=== PATIENT | female | born 1930 | race Caucasian/White ===

== ENCOUNTER 2018-06-29 09:10 | Inpatient (IN) | payer MEDICARE ==
[~2018-06-29] VITALS: Ht 165.1 cm; Wt 85.4 kg
--- OUTSIDE RECORDS SUMMARY | 2018-06-29 09:24 | XMS REPORT ---
Author Author [facility] Address Unknown Phone Unavailable Care Team Providers Care Conventional Mortgage Underwriter Name Role Phone Unavailable Unavailable Payers Payer Name Policy Type Policy Number Effective Date Expiration Date Problems This patient has no known problems. Allergies, Adverse Reactions, Alerts Allergy Name Allergy Type Status Severity Reaction(s) Onset Date Inactive Date Treating Clinician Comments sulfamethoxazole DA Active U 2017-08-16 00:00:00 trimethoprim DA Active U 2017-08-16 00:00:00 Medications This patient has no known medications.
--- NOTE | 2018-06-29 10:13 | Diagnostic Imaging Report ---
Examination: CT head without contrast Clinical Indication: Severe pain behind the eyes. Headaches.. Technique: Transaxial noncontrast images from the skull base through the vertex were obtained. Sagittal and coronal reformatted images were done. Dose modulation, iterative reconstruction, and/or weight based adjustment of the mA/kV was utilized to reduce the radiation dose to as low as reasonably achievable. Comparison: None. Findings: Scalp: No abnormalities. Bones: Intact. No fractures. No blastic or lytic lesions. Brain sulci: Mild volume loss for patient's age. Ventricles: Ex vacuo dilatation. No hydrocephalus. . Extra-axial space: No abnormalities. Parenchyma: There are subtle confluent areas of low-attenuation within subcortical and periventricular white matter, nonspecific, but could represent microvascular ischemic disease. No masses, hemorrhage, or acute or chronic cortical based vascular insults. Suprasellar region: No abnormalities. Craniocervical junction: The foramen magnum is patent. No Chiari one malformation. Incidental findings: Atherosclerotic calcification of the cavernous and supraclinoid internal carotid arteries. Impression: 1. No acute intracranial finding. 2. Mild chronic microvascular ischemic change and mild volume loss. Signed by: Dr. Arely Oden M.D. on 06/29/2018 10:09 AM
[2018-06-29 10:49] LABS: BASOPHILS # (AUTO) 0.1 (0.0-0.1); BASOPHILS % 0.7 % (0.0-1.0); EOSINOPHILS # (AUTO) 0.1 (0.0-0.4); EOSINOPHILS % 1.2 % (0.0-6.0); HEMATOCRIT 38.6 % (34.2-44.1); HEMOGLOBIN 12.3 g/dL (12.0-16.0); LYMPHOCYTES # (AUTO) 1.5 (1.0-3.2); MEAN CORPUSCULAR HEMOGLOBIN 32.5 pg (28-32); MEAN CORPUSCULAR HGB CONC 31.9 g/dL (31-35); MEAN CORPUSCULAR VOLUME 102.1 fL (81-99); MONOCYTES # (AUTO) 0.7 (0.2-0.8); MONOCYTES % 10.4 % (4.4-11.3); NEUTROPHILS # (AUTO) 4.5 (2.1-6.9); NEUTROPHILS % 65.6 % (38.7-80.0); PLATELET COUNT 194 x10e3/uL (140-360); RED BLOOD COUNT 3.78 x10e6/uL (3.6-5.1); RED CELL DISTRIBUTION WIDTH 14.2 % (11.7-14.4)
[2018-06-29 11:00] LABS: PARTIAL THROMBOPLASTIN TIME 23.4 seconds (23.8-35.5); PROTHROMBIN TIME 14.1 seconds (11.9-14.5)
[2018-06-29 11:08] LABS: ALANINE AMINOTRANSFERASE 19 IU/L (0-55); ALBUMIN 3.5 g/dL (3.5-5.0); ALBUMIN/GLOBULIN RATIO 1.1 (0.8-2.0); ALKALINE PHOSPHATASE 79 IU/L (40-150); BLOOD UREA NITROGEN 17 mg/dL (7-26); BUN/CREATININE RATIO 13 (6-25); CALCIUM 9.6 mg/dL (8.4-10.2); CARBON DIOXIDE 25 mmol/L (22-29); CHLORIDE 108 mmol/L (98-107); CREATINE KINASE 76 IU/L (29-168); CREATININE, SERUM 1.31 mg/dL (0.57-1.11); EST GLOMERULAR FILTRATION RATE 39 ML/MIN (60-); GLUCOSE 107 mg/dL (74-118); SODIUM 142 mmol/L (136-145)
[2018-06-29] MEDS ORDERED: ASPIRIN 325 MG TAB PO ONE (11:45)
--- NOTE | 2018-06-29 15:16 | Diagnostic Imaging Report ---
MRI BRAIN WO HISTORY: Loss of vision, possible stroke COMPARISON: Head CT 06/29/2018 TECHNIQUE: Sagittal T2, axial T2, axial T1, axial T2/FLAIR, axial gradient echo (or susceptibility weighted), coronal T2/FLAIR, and axial diffusion weighted MR images of the brain were obtained without contrast. Motion artifacts obscure some details. DISCUSSION: Scalp/bone marrow: Unremarkable. Brain sulci: Mildly prominent. Ventricles: Compensatory dilatation. Extra-axial spaces: No masses or fluid collections. Parenchyma: Scattered T2/FLAIR hyperintense foci throughout the supratentorial white matter are likely chronic microvascular ischemic changes. Otherwise, no mass, hemorrhage, or acute vascular insults. Vessels: Normal flow voids in major arteries and veins. Sellar/Suprasellar region: No abnormalities. Craniocervical junction: No abnormalities. Incidental findings: Both ocular lenses are thinned. IMPRESSION: 1. No acute intracranial abnormalities. 2. Mild supratentorial chronic microvascular ischemic change. Mild generalized cerebral volume loss. Signed by: Dr. Oskar Kwok M.D. on 06/29/2018 3:12 PM
[2018-06-29] MEDS ORDERED: HYDRALAZINE HCL 20 MG/ML VIAL IV PRN (15:30)
[2018-06-29 17:28] LABS: CHOL/HDL RATIO 1.8 (3.0-3.6)
[2018-06-29] MEDS: FAMOTIDINE 20 MG TAB PO SCH (17:40)
[2018-06-29] MEDS: HEPARIN 25,000 UNIT/D5W 250ML 250 ML IV SCH (18:04)
--- NOTE | 2018-06-29 20:17 | Consultation ---
DATE OF CONSULTATION: June 29, 2018 NEUROLOGY CONSULTATION NOTE HISTORY OF PRESENT ILLNESS: Ms. 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 On the afternoon of June 28, 2018, patient experienced severe pain surrounding her left eye. She describes the pain as stabbing. On the afternoon of June 28, 2018, there are no other symptoms associated with this pain. Ms. Kowalski reports the pain resolved after approximately 15 minutes. At 0630 on June 29, 2018, patient once again experienced pain similar to that described above. In addition to the pain, Ms. Kowalski experienced the sudden onset of right homonymous hemianopsia. Ms. Kowalski does not report dysarthria, aphasia, facial droop, hemiparesis, hemihypesthesia, gait impairment, poor balance, dizziness, or confusion associated with the above symptoms. Ms. Kowalski reports the visual disturbance lasted for approximately 25 minutes, then spontaneously resolved. Approximately 1 hour after the symptoms began, Ms. Kowalski called her daughter to inform her of her symptoms. The patient's daughter advised her to go to the Emergency Center at [facility] for further evaluation. Upon arrival in the Emergency Center, the patient was afebrile with a blood pressure 169/84 mmHg and pulse is 69 beats per minute. The patient's neurological examination was documented as being nonfocal. A CT of the brain without contrast was performed and did not show evidence of recent large territorial ischemia or hemorrhage. Ms. Kowalski will be admitted to [facility] for further evaluation and treatment of the above described symptoms. 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 She is treated with Coumadin to prevent recurrence of deep venous thromboses as well as to prevent other blood clots. However, Ms. Kowalski has not taken her Coumadin for the past 3 days pending a pain procedure which is scheduled to occur on Sunday, July 01, 2018. Ms. Kowalski reports being diagnosed with myasthenia gravis in 2012. The patient took oral medications for her myasthenia gravis until approximately 2 years ago. At that time, the patient's neurologist discontinued treatment with these medications. REVIEW OF SYSTEMS: Blurred vision, loss of vision (right homonymous hemianopsia), eye pain. Otherwise, the 12 point review of systems is negative. 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 PAST SURGICAL HISTORY: Left foot surgery, left mastectomy, hysterectomy, right thyroid lobectomy, multiple other surgeries/procedures which the patient does not recall at present. PAST HOSPITALIZATIONS: Surgeries/procedures as listed, diverticulitis 1 year ago, pneumonia 2 years ago, childbirth times 2, multiple other hospitalizations which the patient does not recall at present. FAMILY MEDICAL HISTORY: The patient's paternal and maternal grandparents are . Their medical histories are unknown. The patient's father is from coronary artery disease with myocardial infarction. Patient's mother is from stomach cancer. Ms. Kowalski had 3 siblings, 1 brother and 2 sisters. The brother is from a broken hip. sisters are alive. One sister has heart disease. Second sister has arthritis. Ms. Kowalski has 2 children, a son and daughter, both of whom are alive. The son is healthy. The daughter has heart disease, arthritis, and peripheral neuropathy. SOCIAL HISTORY: Ms. Kowalski is . She is retired. She does not report current or prior tobacco or recreational drug use. The patient does report alcohol use. She drinks a glass of wine 2 to 3 times per week. HOME MEDICATIONS: Warfarin 7 mg or 6 mg, pantoprazole 40 mg by mouth daily, levothyroxine 75 mcg by mouth daily, atorvastatin 40 mg by mouth at bedtime daily, lorazepam 0.5 mg by mouth as needed for anxiety, lisinopril-hydrochlorothiazide 20-25 mg by mouth daily. ALLERGIES: NO KNOWN DRUG ALLERGIES. NO KNOWN FOOD ALLERGIES. NO KNOWN ALLERGIES TO LATEX. NO KNOWN ALLERGIES TO IODINE OR OTHER CONTRAST MATERIALS. PHYSICAL EXAMINATION: VITAL SIGNS: Height 65 inches, weight 180 pounds. BMI 30.0 kg per meter squared. Blood pressure 171/91 mmHg. Pulse 63 beats per minute. Respiratory rate 18 breaths per minute. Oxygen saturation 96% on room air. GENERAL: The patient is awake and alert. Does not appear distressed. Overweight. HEENT: Normocephalic and atraumatic. Pupils are surgical. Moist mucous membranes. NECK: Supple. No appreciable thyromegaly. No appreciable carotid bruits. CARDIOVASCULAR: S1 and S2. Regular rate and rhythm. No murmurs, rubs or gallops. RESPIRATORY: Clear to auscultation bilaterally. No wheezes, rhonchi or rales. EXTREMITIES: The skin is warm and dry. No clubbing, cyanosis or edema. The posterior tibial and dorsalis pedis pulses are 1+ and symmetric. SKIN: No rashes or lesions. NEUROLOGIC: Memory/attention: The patient is awake and alert. Oriented to person, place, time, and situation. CRANIAL NERVES: Cranial nerve I: Not tested. Cranial nerves II, III, IV, : Pupils are surgical. Extraocular movements intact. No nystagmus. Cranial nerve V: Sensation to light touch and pinprick is intact in the bilateral V1 through V3 distributions. Strength of the temporalis and masseter muscles is within normal limits. Cranial nerve VII: The face is symmetric, as are all facial movements. Strength is within normal limits. Cranial nerve VIII: Hearing is diminished to finger rub bilaterally. Cranial nerve IX and X: The soft palate elevates equally and symmetrically. Cranial nerve XI: Normal strength of the bilateral sternocleidomastoid and trapezius muscles. Cranial nerve XII: The tongue protrudes midline and moves symmetrically from side to side. STRENGTH: Bulk is normal, and strength is 5/5 in the bilateral deltoids, biceps, triceps, wrist flexors and extensors, finger flexors and extensors, intrinsic hand muscles, hip flexors, knee flexors and extensors, ankle dorsiflexion and plantar flexion, and intrinsic foot muscles. Tone is normal. DTRs: Deep tendon reflexes are 1+ and symmetric at the triceps, biceps, brachioradialis, and patellas. Deep tendon reflexes are absent and symmetric at the Achilles. Plantar responses are flexor bilaterally. SENSATION: Intact to light touch and pinprick in both arms and both legs. CEREBELLAR: Hhmqkf-sdpd-rbrjzs and heel-garcía movements are intact without dysmetria or other impairment. GAIT: Deferred. SPEECH: Spontaneous speech is normal without appreciable dysarthria or aphasia. Repetition is intact. INVOLUNTARY MOVEMENTS: None. PRONATOR DRIFT: None. LABORATORY DATA: The patient's comprehensive metabolic panel is significant for a mildly elevated chloride of 108, an elevated creatinine 1.31, and a low estimated GFR 39. Cardiac enzymes are negative times 1. The hemoglobin A1c is 5.4. The CBC with differential and platelets reveals a white blood cell count of 6.90 with a normal differential. The hemoglobin and hematocrit are 12.3 and 38.6, respectively. The MCV is elevated at 102.1. The MCH is elevated at 32.5. The platelet count is 194. Erythrocyte sedimentation rate is 13. PT and INR are within normal limits. PTT is 23.4. DIAGNOSTIC STUDIES: Electrocardiogram 06/29/2018: Pending. CT of the brain without contrast 06/29/2018: On my review, there is no evidence of recent large territorial ischemia, hemorrhage, mass or mass effect. There is diffuse cerebral atrophy, more than expected for the patient's age. There are findings compatible with mild to moderate chronic small vessel ischemic disease. Echocardiogram 06/29/2018: Ejection fraction is 50% to 55%. There is trace mitral and tricuspid regurgitation. Bilateral carotid artery ultrasound with Doppler: Results pending. MRI of the brain without contrast 06/29/2018: On my review, there is no evidence of recent large territorial ischemia, hemorrhage, mass, or mass effect. There is diffuse cerebral atrophy with compensatory dilatation of the ventricles, more than expected for the patient's age. There is scattered T2/flair hyperintense foci throughout the supratentorial deep white matter compatible with mild chronic small vessel ischemic disease. ASSESSMENT: Ms. Kowalski is an 87-year-old [id number] woman with multiple vascular risk factors, including a prior history of multiple deep venous thromboses treated with Coumadin (not taken for the past 3 days) admitted to [facility] on June 29, 2018 with a transient ischemic attack. The patient's neurological examination is nonfocal. Her laboratory data and other diagnostic studies have been reviewed and are documented above. RECOMMENDATIONS: 1. A lipid panel will be ordered to complete the patient's stroke evaluation. 2. Follow up all pending results. 3. Ms. Kowalski will be placed on heparin drip as a bridge to anticoagulation. Anticoagulation will be discussed with the primary attending as well as the patient's legal transcriber, Dr. Perez. 4. Allow permissive hypertension for approximately 24 to 48 hours following a stroke or transient ischemic attack. Ms. Kowalski's blood pressure may be normalized beginning on June 30, 2018. 5. Follow up the results of the lipid panel. The patient's goal total cholesterol is less than 200. Patient's goal LDL is less than 70. Treatment with the patient's home medication of atorvastatin 40 mg by mouth at bedtime daily will be continued in the interim. 6. The patient's hemoglobin A1c is below goal. Tight glycemic control is recommended while the patient is in the hospital. 7. Speech and physical therapy consultations will be ordered. 8. GI prophylaxis with Pepcid 20 mg by mouth twice daily with meals. DVT prophylaxis with heparin drip. 9. Defer treatment of the remaining medical comorbidities to the primary and other services following the patient. Thank you for this consultation. I will continue to follow the patient while she remains in the hospital. Time spent: 70 minutes. Job#: [id number] GH MTDD
[2018-06-29] MEDS ORDERED: ATORVASTATIN 20 MG TAB PO SCH (21:00)
[2018-06-29] MEDS ORDERED: ATORVASTATIN 40 MG TAB PO SCH (21:00)
[2018-06-29] MEDS ORDERED: ATORVASTATIN CA40 MG PO (22:04)
[2018-06-29] MEDS ORDERED: WARFARIN SODIU7.5 MG PO (22:04)
[2018-06-29] MEDS ORDERED: PANTOPRAZOLE SO40 MG PO (22:04)
[2018-06-29] MEDS ORDERED: LISINOPRIL-HCT1 EAC1 PO (22:04)
[2018-06-29] MEDS ORDERED: ALBUTEROL2.5 MG/3 M INH (22:04)
[2018-06-29] MEDS ORDERED: LEVOTHYROXINE75 MCG PO (22:04)
[2018-06-30 02:18] LABS: INR 1.04; PROTHROMBIN TIME 14.5 seconds (11.9-14.5)
[2018-06-30 02:19] LABS: PARTIAL THROMBOPLASTIN TIME 49.6 seconds (23.8-35.5)
[2018-06-30] MEDS ORDERED: FLAGYL250 MG PO (07:46)
[2018-06-30] MEDS ORDERED: CIPRO500 MG PO (07:46)
[2018-06-30] MEDS ORDERED: SODIUM CHLORIDE 0.9% 1000ML 1,000 ML IV ONE (08:00)
[2018-06-30] MEDS: CIPROFLOXACIN 500 MG TAB PO SCH ×2 (08:00→09:31)
[2018-06-30] MEDS: METRONIDAZOLE 250 MG TAB PO SCH ×3 (08:00→19:57)
--- NOTE | 2018-06-30 08:34 | History and Physical ---
PRIMARY CARE PHYSICIAN: Dr. Estiven Lee CHIEF COMPLAINT: Vision loss. HISTORY OF PRESENT ILLNESS: This is an 87-year-old woman with a history of pneumonia and hypertension, now developing vision loss. The patient states that on Friday she had a severe headache radiating from her eye through to the back of her head, which resolved later that day. The following day she had a similar episode. Then she had acute vision loss and difficult to make out words and some sputum. She has not had this in the past. Therefore, she went to the emergency room. Imaging was negative for acute stroke. She is admitted for further evaluation and management. The patient is currently being treated with Cipro and Flagyl for acute diverticulitis flare. PAST MEDICAL HISTORY: Hypertension, diverticulitis, pneumonia, hypothyroidism, hyperlipidemia, warfarin use. PAST SURGICAL HISTORY: Thyroidectomy, hysterectomy, ankle. ALLERGIES: PER ELECTRONIC MEDICAL RECORDS. FAMILY/SOCIAL HISTORY: Patient is . She has 2 children. Occasional alcohol. No cigarettes or illicits. MEDICATIONS: Per electronic medical record. REVIEW OF SYSTEMS: Denies any fever, chills, sweats, nausea, vomiting, diarrhea. Denies any leg pain, back pain, nausea, or vomiting. PHYSICAL EXAMINATION VITAL SIGNS: Reviewed. GENERAL: A tired-appearing woman resting in bed. HEENT: Anicteric. CARDIOVASCULAR: Normal S1 and S2. LUNGS: Moderate breath sounds. ABDOMEN: Soft, nontender and nondistended. EXTREMITIES: No edema or calf tenderness. NEUROLOGICAL: Alert and oriented times 3. Moving all extremities. Motor strength is 5/5 in the upper extremities and 4/5 in the lower extremities. No visual field deficits. SKIN: Dry. PSYCHIATRIC: Normal affect. LABS: Reviewed. MEDICATIONS: Reviewed. ASSESSMENT: An 87-year-old woman with: 1. Transient ischemic attack. 2. Diverticulitis. 3. Hypothyroidism. 4. Hypertension. 5. Hyperlipidemia. 6. Obesity. 7. Acute kidney injury. PLAN 1. CT scan of the brain is negative. MRI of the brain is negative for any acute findings. 2. Echocardiogram with normal left ventricular ejection fraction of 50% to 55%, mild valvular disease. 3. Physical therapy consultation. Follow up carotid ultrasound. 4. Continue aspirin 325 mg daily and continue blood pressure control. 5. Obtain urinalysis. Job#: [id number] LAINEY
[2018-06-30] MEDS ORDERED: WARFARIN SODIUM 7.5 MG PO SCH (09:00)
[2018-06-30] MEDS ORDERED: NON-FORMULARY MEDICATION (Atorvastatin Calcium 40 MG) PO SCH (09:00)
[2018-06-30] MEDS ORDERED: LEVOTHYROXINE SODIUM 75 MCG TAB PO SCH (09:00)
[2018-06-30] MEDS ORDERED: LISINOPRIL 20 MG TAB PO SCH (09:00)
[2018-06-30] MEDS: ALBUTEROL SULF 0.083% NEB SOLN 3 ML NEB INH SCH ×2 (09:00→15:24)
[2018-06-30] MEDS ORDERED: HYDROCHLOROTHIAZIDE 25 MG TAB PO SCH (09:00)
[2018-06-30] MEDS ORDERED: PANTOPRAZOLE SOD 40 MG TABEC PO SCH (09:00)
[2018-06-30] MEDS: FAMOTIDINE 20 MG TAB PO SCH ×2 (09:31→17:55)
[2018-06-30] MEDS: LISINOPRIL 20 MG TAB PO SCH (09:31)
[2018-06-30] MEDS: HYDROCHLOROTHIAZIDE 25 MG TAB PO SCH (09:31)
[2018-06-30] MEDS: ASPIRIN 325 MG TAB EC PO SCH (09:41)
[2018-06-30 13:29] LABS: CLARITY,URINE SL CLOUDY (CLEAR); COLOR,URINE YELLOW (YELLOW); LEUKOCYTE ESTERASE ,URINE NEGATIVE (NEGATIVE); NITRITE,URINE NEGATIVE (NEGATIVE)
[2018-06-30 13:30] LABS: BILIRUBIN,URINE NEGATIVE (NEGATIVE); KETONES,URINE NEGATIVE (NEGATIVE); PROTEIN,URINE DIPSTICK NEGATIVE (NEGATIVE); URINE UROBILINOGEN 0.2 mg/dL (0.2 - 1)
[2018-06-30 13:51] LABS: EPITHELIAL CELLS,URINE FEW /LPF
[2018-06-30] MEDS ORDERED: WARFARIN SOD 2.5 MG TAB PO SCH (17:00)
[2018-06-30] MEDS ORDERED: WARFARIN SOD 5 MG TAB PO SCH (18:00)
[2018-06-30] MEDS: HEPARIN 25,000 UNIT/D5W 250ML 250 ML IV SCH (19:56)
[2018-06-30 20:50] VITALS: BP 139/69
[2018-06-30] MEDS ORDERED: ATORVASTATIN 40 MG TAB PO SCH (21:00)
[2018-06-30] MEDS ORDERED: ATORVASTATIN 20 MG TAB PO SCH (21:00)
[2018-06-30 21:30] VITALS: BP 139/69
[2018-07-01] VITALS: BP 105/52
[2018-07-01 04:00] VITALS: BP 113/60
[2018-07-01 05:58] LABS: BASOPHILS # (AUTO) 0.1 (0.0-0.1); BASOPHILS % 1.1 % (0.0-1.0); EOSINOPHILS # (AUTO) 0.2 (0.0-0.4); EOSINOPHILS % 2.8 % (0.0-6.0); HEMATOCRIT 36.5 % (34.2-44.1); LYMPHOCYTES # (AUTO) 1.9 (1.0-3.2); LYMPHOCYTES % 35.2 % (18.0-39.1); MEAN CORPUSCULAR HEMOGLOBIN 32.9 pg (28-32); MEAN CORPUSCULAR HGB CONC 32.9 g/dL (31-35); MONOCYTES # (AUTO) 0.6 (0.2-0.8); MONOCYTES % 11.7 % (4.4-11.3); NEUTROPHILS # (AUTO) 2.6 (2.1-6.9); PLATELET COUNT 186 x10e3/uL (140-360); RED BLOOD COUNT 3.65 x10e6/uL (3.6-5.1); RED CELL DISTRIBUTION WIDTH 14.1 % (11.7-14.4)
[2018-07-01] MEDS ORDERED: LEVOTHYROXINE SODIUM 75 MCG TAB PO SCH (06:00)
[2018-07-01 06:11] LABS: INR 0.99
[2018-07-01 06:14] LABS: ANION GAP 12.8 mmol/L (8-16); CALCIUM 9.4 mg/dL (8.4-10.2); CREATININE, SERUM 1.29 mg/dL (0.57-1.11); POTASSIUM 3.8 mmol/L (3.5-5.1)
[2018-07-01 06:42] LABS: FREE T4 (FREE THYROXINE) 1.22 ng/dL (0.9-1.8); THYROID STIMULATING HORMONE 2.398 uIU/mL (0.350-4.940)
[2018-07-01] MEDS ORDERED: LOVENOX60 MG/0.6 SC (07:43)
[2018-07-01] MEDS ORDERED: ASPIR 8181 MG PO (07:43)
[2018-07-01] MEDS: FAMOTIDINE 20 MG TAB PO SCH (07:44)
[2018-07-01 08:10] VITALS: BP 132/62
[2018-07-01] MEDS: HYDROCHLOROTHIAZIDE 25 MG TAB PO SCH (09:45)
[2018-07-01] MEDS: LISINOPRIL 20 MG TAB PO SCH (09:45)
[2018-07-01] MEDS: ASPIRIN 325 MG TAB EC PO SCH (09:45)
[2018-07-01] MEDS ORDERED: CIPROFLOXACIN 500 MG TAB PO SCH (11:45)
[2018-07-01 12:15] VITALS: BP 122/73
[2018-07-01] MEDS ORDERED: ENOXAPARIN40 MG/0.4 SC (14:13)
[2018-07-01] MEDS ORDERED: METRONIDAZOLE 250 MG TAB PO SCH (15:00)
== END 2018-07-01 14:59 | disposition home health service (06) | DRG 69 ==
LOC: ER 09:21 → ERHOLD 11:53 → IMCU 06-30 20:33
PROVIDERS: ADMIT Internal Medicine; ATTEND Internal Medicine
DX: G45.9 Transient cerebral ischemic attack, unspecified (principal); K57.92 Diverticulitis of intestine, part unspecified, without perforation or abscess without bleeding; I10 Essential (primary) hypertension; E78.5 Hyperlipidemia, unspecified; K21.9 Gastro-esophageal reflux disease without esophagitis; F41.9 Anxiety disorder, unspecified; G70.00 Myasthenia gravis without (acute) exacerbation; E66.9 Obesity, unspecified; E03.9 Hypothyroidism, unspecified; H53.461 Homonymous bilateral field defects, right side; Z68.31 Body mass index [BMI] 31.0-31.9, adult; Z85.3 Personal history of malignant neoplasm of breast; Z86.711 Personal history of pulmonary embolism; Z86.718 Personal history of other venous thrombosis and embolism; Z79.01 Long term (current) use of anticoagulants; Z87.01 Personal history of pneumonia (recurrent); Z79.82 Long term (current) use of aspirin
CPT/HCPCS: 36415; 70450; 70551; 80048; 80053; 80061; 81001; 82550; 82553; 83036; 83735; 84439; 84443; 84484; 85025; 85610; 85651; 85730; 92523; 93306; 93880; 94640; 99283

== ENCOUNTER → 2018-07-15 | Outpatient (CLI) | payer MEDICARE ==
[~2018-07-15] MED LIST: ALBUTEROL2.5 MG/3 M INH; ASPIR 8181 MG PO; ATORVASTATIN CA40 MG PO; CIPRO500 MG PO; DIATRIZOATE MEGL/DIATRIZOA SOD 30 ML BTL PO ONE; ENOXAPARIN40 MG/0.4 SC; FLAGYL250 MG PO; LEVOTHYROXINE75 MCG PO; LISINOPRIL-HCT1 EAC1 PO; LOVENOX60 MG/0.6 SC; PANTOPRAZOLE SO40 MG PO; WARFARIN SODIU7.5 MG PO
[2018-07-15 15:17] LABS: CREATININE, SERUM 1.29 mg/dL (0.57-1.11)
--- NOTE | 2018-07-15 16:23 | Diagnostic Imaging Report ---
EXAM: CT Abdomen and Pelvis WITHOUT contrast INDICATION: Pain COMPARISON: None. TECHNIQUE: Abdomen and Pelvis was scanned utilizing a multidetector helical scanner without the use of IV contrast. Coronal and sagittal reformations were obtained. IV CONTRAST: None COMPLICATIONS: None RADIATION DOSE: Total DLP: 709 mGy*cm Estimated effective dose: (DLP x 0.015 x size factor) mSv CTDIvol has been reviewed. It is below the limits set by the Radiation Protocol Committee (RPC). Appropriate CT dose reduction techniques were utilized. FINDINGS: Abdomen: Lung Bases: Atelectasis. Solid Organs: Hypodensity left mid kidney incompletely evaluated given lack of IV contrast. Splenic granulomata. Otherwise, nonenhanced images of the liver, adrenals, and pancreas are unremarkable. No hydronephrosis, renal, or ureteral calculi. Upper GI Tract: No small bowel obstructive changes. Vascularity: Mild aortic vascular calcifications with no aneurysm. Lymph Nodes: No suspicious adenopathy. Other: None. Pelvis: Bladder: Unremarkable. Other: Uterus absent. Colon: Advanced colonic diverticulosis. Areas of wall thickening in the descending and sigmoid colon present with minimal surrounding stranding. Bones: No acute findings. Minimal height loss lower thoracic spine, chronic in appearance. IMPRESSION: 1. Extensive diverticulosis with probable mild acute diverticulitis. Areas of wall thickening may represent sequela of chronic inflammation. Underlying malignancy would be difficult to exclude. Correlation with age appropriate colonoscopy. 2. Hypodensity left kidney incompletely evaluated. Nonemergent renal ultrasound could be obtained for further evaluation. Signed by: Dr. Emerson Dangelo MD on 07/15/2018 4:20 PM
== END ==
LOC: CT 13:51
PROVIDERS: ATTEND Internal Medicine Gastroenterology
DX: K57.92 Diverticulitis of intestine, part unspecified, without perforation or abscess without bleeding (principal); Z86.010 Personal history of colon polyps; Z80.0 Family history of malignant neoplasm of digestive organs
CPT/HCPCS: 36415; 74176; 82565; 84520; Q9663

== ENCOUNTER 2019-03-06 23:21 | Emergency (ER) | payer MEDICARE ==
[~2019-03-06] VITALS: Ht 165.1 cm; Wt 85.3 kg
[~2019-03-06 23:21] MED LIST changes: -DIATRIZOATE MEGL/DIATRIZOA SOD 30 ML BTL PO ONE
[2019-03-07] MEDS: METHYLPREDNISOLONE SOD SUCC 125 MG/2ML VIAL IM ONE (00:30)
[2019-03-07] MEDS: FENTANYL 50 MCG/HR PATCH TOP SCH (00:30)
--- NOTE | 2019-03-07 02:15 | NUR ---
RAD CALLED FOR UPDATE ON RAD REPORT, WILL CALL RADIOLOGIST
--- NOTE | 2019-03-07 02:50 | Diagnostic Imaging Report ---
Right hip with AP pelvis 3 - views HISTORY: Pain COMPARISON: None FINDINGS: No displaced fracture. Osseous alignment is within normal limits. Mild degenerative changes of the right hip and SI joints. Phleboliths projected on the lower pelvis. Vascular calcifications. Degenerative changes of the lower lumbar spine. 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 Signed by: Dr. Reg Gonzalez M.D. on 03/07/2019 2:47 AM
[2019-03-07] MEDS ORDERED: ULTRAM50 MG PO (03:16)
== END 2019-03-07 03:36 | disposition home or self-care (01) ==
LOC: ER 23:21
DX: M54.5 Low back pain (principal); S39.012A Strain of muscle, fascia and tendon of lower back, initial encounter; M46.1 Sacroiliitis, not elsewhere classified; M16.0 Bilateral primary osteoarthritis of hip; M47.898 Other spondylosis, sacral and sacrococcygeal region
CPT/HCPCS: 73502; 99283; J2930